=== PATIENT | female | born 1980 | race Two or more races ===

== ENCOUNTER 2016-09-10 20:15 | Emergency (ER) | payer OTHER ==
[~2016-09-10] VITALS: Ht 154.9 cm; Wt 70.3 kg
[2016-09-10 20:19] VITALS: BP 106/73
== END 2016-09-10 21:25 | disposition home or self-care (01) ==
LOC: ER 20:19
DX: I49.3 Ventricular premature depolarization (principal)
CPT/HCPCS: 93005; 99283; A4606; Z7610

== ENCOUNTER 2018-02-06 19:59 | Emergency (ER) | payer OTHER ==
[~2018-02-06] VITALS: Ht 162.6 cm; Wt 68.0 kg
[2018-02-06 20:53] VITALS: BP 110/60
--- NOTE | 2018-02-06 20:54 | NUR ---
Patient discharged to home in stable condition. Written and verbal after care instructions given. Patient verbalizes understanding of instruction.
== END 2018-02-06 20:56 | disposition home or self-care (01) ==
LOC: ER 20:05
DX: N63.10 Unspecified lump in the right breast, unspecified quadrant (principal); Z98.890 Other specified postprocedural states
CPT/HCPCS: 99281; A4606; Z7610; Z7502

== ENCOUNTER 2018-11-11 08:14 | Emergency (ER) | payer OTHER ==
[~2018-11-11] VITALS: Ht 162.6 cm; Wt 63.0 kg
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
--- NOTE | 2018-11-11 09:50 | NUR ---
Patient discharged to home in stable condition. Written and verbal after care instructions given. Patient verbalizes understanding of instruction. Accompanied by .
[2018-11-11 09:55] VITALS: BP 108/66
== END 2018-11-11 09:56 | disposition home or self-care (01) ==
LOC: ER 08:14
DX: I49.3 Ventricular premature depolarization (principal); R07.89 Other chest pain; Z98.890 Other specified postprocedural states
CPT/HCPCS: 71045; 93005; 99283; A4606